=== PATIENT | male | born 1985 | race Caucasian/White ===

== ENCOUNTER 2020-08-09 13:29 | Observation (INO) | payer BC ==
[2020-08-09] MEDS ORDERED: Sodium Chloride 0.9% 10 ML Syringe FLUSH PRN (14:14)
--- NOTE | 2020-08-09 14:27 | EDM.PDOC ---
ED HPI GENERAL MEDICAL PROBLEM - General Chief Complaint: Skin Complaint Stated Complaint: INFECTION IN FEET Time Seen by Provider: 08/09/20 13:47 Source of Information: Reports: Patient, RN Notes Reviewed History Limitations: Reports: No Limitations - History of Present Illness INITIAL COMMENTS - FREE TEXT/NARRATIVE: Patient is a 34-year-old male who presents to the ED for evaluation of his bilateral feet infection. He notes that this has been present for about 1 week, he thought that he may have developed some athlete's foot, so he was using Lotrimin cream for this, along with some hydrocortisone cream, this seemed to help a little bit however he notes that the redness has continued to spread, and is now affecting both of his feet. He denies being a diabetic, or any other major past medical history. He was seen at the [facility] by Maryan Palafox yesterday and placed on doxycycline notes that he took his 2 doses of this. He has redness to his bilateral dorsal feet, along with some associated blisters between the great toes and second toes. Redness streaks all the way up to his mid robles level. He is not having too much pain with this, and is able to move his toes in all range of motion without difficulty. He did take some Jiuce aspirin this morning for pain management and this seemed to help a little bit. He is denying any fevers or chills, cough shortness of breath, nausea/vomiting/diarrhea. He states that his primary care provider would be Corin Son, he went to see Maryan Palafox yesterday as she was the only provider that could get him in her schedule. 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) Bilateral Feet Pain Score (Numeric/FACES): 6 - Related Data Allergies Allergy/AdvReac Type Severity Reaction Status Date / Time No Known Allergies Allergy Verified 08/09/20 13:54 Home Meds: Home Meds Doxycycline [Doxycycline Monohydrate] 100 mg PO DAILY 08/09/20 [History] Past Medical History - Past Surgical History HEENT Surgical History: Reports: Tonsillectomy Social & Family History - Tobacco Use Tobacco Use Status *Q: Current Every Day Tobacco User Years of Tobacco use: 5 Packs/Tins Daily: 0.7 - Caffeine Use Caffeine Use: Reports: Soda - Alcohol Use Days Per Week of Alcohol Use: 1 Number of Drinks Per Day: 3 Total Drinks Per Week: 3 - Recreational Drug Use Recreational Drug Use: No ED ROS GENERAL - Review of Systems Review Of Systems: Comprehensive ROS is negative, except as noted in HPI. ED EXAM, SKIN/RASH Exam: See Below Exam Limited By: No Limitations General Appearance: Alert, WD/WN, No Apparent Distress Respiratory/Chest: No Respiratory Distress, Lungs Clear, Normal Breath Sounds, No Accessory Muscle Use, Chest Non-Tender Cardiovascular: Normal Peripheral Pulses, Regular Rate, Rhythm, No Edema Peripheral Pulses: 2+: Dorsalis Pedis (L), Dorsalis Pedis (R) Extremities: Normal Range of Motion, Increased Warmth (to bilateral feet), Redness (to dorsum of bilateral feet, extending to mid robles on bilateral extremities), Other (brisk cap refill) Neurological: Alert, Oriented, Normal Cognition, No Motor/Sensory Deficits Psychiatric: Normal Affect, Normal Mood Skin: Warm, Dry, Intact, No Rash, Erythema (to dorsum of bilateral feet, extending to mid robles on bilateral extremities; areas of blistering noted to between R great toe and 2nd toe and on left foot-2nd toe), Increased Warmth Course - Vital Signs Last Recorded V/S: Last Vital Signs Temp 97.0 F 08/09/20 13:47 Pulse 105 H 08/09/20 13:47 Resp 16 08/09/20 13:47 BP 158/105 H 08/09/20 13:47 Pulse Ox 98 08/09/20 13:47 - Orders/Labs/Meds Orders: Active Orders 24 hr Category Date Time Status Admission Status [Patient Status] [ADT] Routine ADT 08/09/20 19:02 Active Height and Weight [RC] UPON Care 08/09/20 19:19 Active Intake and Output [RC] QSHIFT Care 08/09/20 19:19 Active Oxygen Therapy [RC] PRN Care 08/09/20 19:19 Active Peripheral IV Care [RC] . DIRECTED Care 08/09/20 14:14 Active RT Aerosol Therapy [RC] ASDIRECTED Care 08/09/20 19:21 Active Up With Assistance [RC] ASDIRECTED Care 08/09/20 19:19 Active Up ad Deanna [RC] ASDIRECTED Care 08/09/20 19:19 Active VTE/DVT Education [RC] PER UNIT ROUTINE Care 08/09/20 19:19 Active Vital Signs [RC] Q4H Care 08/09/20 19:19 Active Consult to Case Management/Police Investigator [CONS] Cons 08/09/20 19:19 Active Routine Consult to Sole Splitter [CONS] Routine Cons 08/09/20 19:19 Active OT Evaluation and Treatment [CONS] Routine Cons 08/09/20 19:19 Active PT Evaluation and Treatment [CONS] Routine Cons 08/09/20 19:19 Active Heart Healthy Diet [DIET] Diet 08/09/20 Dinner Active Venous Doppler Lwr Ext Bi [US] Stat Exams 08/09/20 16:08 Taken C-REACTIVE PROTEIN [CHEM] AM Lab 08/10/20 05:11 Ordered C-REACTIVE PROTEIN [CHEM] AM Lab 08/11/20 05:11 Ordered C-REACTIVE PROTEIN [CHEM] AM Lab 08/12/20 05:11 Ordered CBC WITH AUTO DIFF [HEME] AM Lab 08/10/20 05:11 Ordered CBC WITH AUTO DIFF [HEME] AM Lab 08/11/20 05:11 Ordered CBC WITH AUTO DIFF [HEME] AM Lab 08/12/20 05:11 Ordered CBC WITH AUTO DIFF [HEME] AM Lab 08/13/20 05:11 Ordered CBC WITH AUTO DIFF [HEME] AM Lab 08/14/20 05:11 Ordered COMPREHENSIVE METABOLIC PN,CMP [CHEM] AM Lab 08/10/20 05:11 Ordered COMPREHENSIVE METABOLIC PN,CMP [CHEM] AM Lab 08/11/20 05:11 Ordered COMPREHENSIVE METABOLIC PN,CMP [CHEM] AM Lab 08/12/20 05:11 Ordered COMPREHENSIVE METABOLIC PN,CMP [CHEM] AM Lab 08/13/20 05:11 Ordered COMPREHENSIVE METABOLIC PN,CMP [CHEM] AM Lab 08/14/20 05:11 Ordered MAGNESIUM [CHEM] AM Lab 08/10/20 05:11 Ordered MAGNESIUM [CHEM] AM Lab 08/11/20 05:11 Ordered MAGNESIUM [CHEM] AM Lab 08/12/20 05:11 Ordered MAGNESIUM [CHEM] AM Lab 08/13/20 05:11 Ordered MAGNESIUM [CHEM] AM Lab 08/14/20 05:11 Ordered Albuterol/Ipratropium [DuoNeb 3.0-0.5 MG/3 ML] Med 08/09/20 19:19 Active 3 ml NEB Q4H PRN Docusate Sodium [Colace] Med 08/09/20 19:19 Active 100 mg PO BID PRN Docusate Sodium/Sennosides [Senna Plus] Med 08/09/20 19:19 Active 1 tab PO BID PRN Enoxaparin [Lovenox] Med 08/10/20 09:00 Ordered 40 mg SUBCUT DAILY HYDROmorphone [Dilaudid] Med 08/09/20 19:19 Active 0.5 mg IVPUSH Q2H PRN Ibuprofen [Motrin] Med 08/09/20 19:19 Active 600 mg PO Q6H PRN Morphine Med 08/09/20 19:19 Active 1 mg IVPUSH Q2H PRN Ondansetron [Zofran] Med 08/09/20 19:19 Active 4 mg IV Q6H PRN Pharmacy to Dose - Vancomycin Med 08/09/20 19:23 Pending 1 dose .XX ONETIME ONE Promethazine [Phenergan] 12.5 mg Med 08/09/20 19:19 Active Sodium Chloride 0.9% [Normal Saline] 50 ml IV Q6H Sodium Chloride 0.9% [Saline Flush] Med 08/09/20 14:14 Active 10 ml FLUSH ASDIRECTED PRN Vancomycin 1 gm Med 08/09/20 19:30 Ordered Sodium Chloride 0.9% [Normal Saline] 250 ml IV Q12H Zolpidem [Ambien] Med 08/09/20 19:19 Active 5 mg PO BEDTIME PRN bisacodyL [Dulcolax] Med 08/09/20 19:19 Active 5 mg PO DAILY PRN oxyCODONE Med 08/09/20 19:19 Active 5 mg PO Q4H PRN Peripheral IV Insertion Adult [OM.PC] Routine Oth 08/09/20 14:14 Ordered Resuscitation Status Routine Resus Stat 08/09/20 19:19 Ordered Medication Orders Albuterol/Ipratropium (Duoneb 3.0-0.5 Mg/3 Ml) 3 ml NEB Q4H PRN PRN Reason: Shortness Of Breath/wheezing Bisacodyl (Dulcolax) 5 mg PO DAILY PRN PRN Reason: Constipation Docusate Sodium (Colace) 100 mg PO BID PRN PRN Reason: Constipation Enoxaparin Sodium (Lovenox) 40 mg SUBCUT DAILY KIRSTIE Hydromorphone HCl (Dilaudid) 0.5 mg IVPUSH Q2H PRN PRN Reason: Pain (severe 7-10) Promethazine HCl 12.5 mg/ (Sodium Chloride) 50.5 mls @ 100 mls/hr IV Q6H PRN PRN Reason: Nausea/Vomiting Vancomycin HCl 1 gm/ Sodium (Chloride) 250 mls @ 250 mls/hr IV Q12H KIRSTIE Ibuprofen (Motrin) 600 mg PO Q6H PRN PRN Reason: Pain (moderate 4-6) Morphine Sulfate (Morphine) 1 mg IVPUSH Q2H PRN PRN Reason: Pain (severe 7-10) Stop: 08/10/20 19:22 Ondansetron HCl (Zofran) 4 mg IV Q6H PRN PRN Reason: Nausea/Vomiting Oxycodone HCl (Oxycodone) 5 mg PO Q4H PRN PRN Reason: Pain (moderate 4-6) Senna/Docusate Sodium (Senna Plus) 1 tab PO BID PRN PRN Reason: Constipation Sodium Chloride (Saline Flush) 10 ml FLUSH ASDIRECTED PRN PRN Reason: Keep Vein Open Last Admin: 08/09/20 14:43 Dose: 10 ml Documented by: REEMA Vancomycin HCl (Pharmacy To Dose - Vancomycin) 1 dose .XX ONETIME ONE Stop: 08/09/20 19:24 Zolpidem Tartrate (Ambien) 5 mg PO BEDTIME PRN PRN Reason: Sleep Labs: Laboratory Tests 08/09/20 08/09/20 08/09/20 Range/Units 14:30 14:51 14:51 WBC 6.40 (4.23-9.07) K/mm3 RBC 5.14 (4.63-6.08) M/mm3 Hgb 15.0 (13.7-17.5) gm/dl Hct 44.8 (40.1-51.0) % MCV 87.2 (79.0-92.2) fl MCH 29.2 (25.7-32.2) pg MCHC 33.5 (32.2-35.5) g/dl RDW Std Deviation 38.8 (35.1-43.9) fL Plt Count 240 (163-337) K/mm3 MPV 9.2 L (9.4-12.3) fl Neutrophils % (Manual) 65 H (40-60) % Band Neutrophils % 0 (0-10) % Lymphocytes % (Manual) 27 (20-40) % Atypical Lymphs % 0 % Monocytes % (Manual) 5 (2-10) % Eosinophils % (Manual) 3 (0.8-7.0) % Basophils % (Manual) 0 L (0.2-1.2) Platelet Estimate Adequate RBC Morph Comment Normal Sodium 142 (136-145) mEq/L Potassium 3.8 (3.5-5.1) mEq/L Chloride 104 (98-107) mEq/L Carbon Dioxide 28 (21-32) mEq/L Anion Gap 13.8 (5-15) BUN 12 (7-18) mg/dL Creatinine 1.1 (0.7-1.3) mg/dL Est Cr Clr Drug Dosing 99.55 mL/min Estimated GFR (MDRD) > 60 (>60) mL/min BUN/Creatinine Ratio 10.9 L (14-18) Glucose 91 (74-106) mg/dL Hemoglobin A1c ( - 5.6) % Calcium 8.9 (8.5-10.1) mg/dL Total Bilirubin 0.7 (0.2-1.0) mg/dL AST 40 H (15-37) U/L ALT 80 H (16-63) U/L Alkaline Phosphatase 100 (46-116) U/L C-Reactive Protein 1.8 H* (<1.0) mg/dL Total Protein 7.9 (6.4-8.2) g/dl Albumin 4.0 (3.4-5.0) g/dl Globulin 3.9 gm/dL Albumin/Globulin Ratio 1.0 (1-2) Influenza Type A RNA Negative (NEGATIVE) Influenza Type B RNA Negative (NEGATIVE) SARS-CoV-2 RNA (JONATHAN) Negative (NEGATIVE) 08/09/20 Range/Units 14:51 WBC (4.23-9.07) K/mm3 RBC (4.63-6.08) M/mm3 Hgb (13.7-17.5) gm/dl Hct (40.1-51.0) % MCV (79.0-92.2) fl MCH (25.7-32.2) pg MCHC (32.2-35.5) g/dl RDW Std Deviation (35.1-43.9) fL Plt Count (163-337) K/mm3 MPV (9.4-12.3) fl Neutrophils % (Manual) (40-60) % Band Neutrophils % (0-10) % Lymphocytes % (Manual) (20-40) % Atypical Lymphs % % Monocytes % (Manual) (2-10) % Eosinophils % (Manual) (0.8-7.0) % Basophils % (Manual) (0.2-1.2) Platelet Estimate RBC Morph Comment Sodium (136-145) mEq/L Potassium (3.5-5.1) mEq/L Chloride (98-107) mEq/L Carbon Dioxide (21-32) mEq/L Anion Gap (5-15) BUN (7-18) mg/dL Creatinine (0.7-1.3) mg/dL Est Cr Clr Drug Dosing mL/min Estimated GFR (MDRD) (>60) mL/min BUN/Creatinine Ratio (14-18) Glucose (74-106) mg/dL Hemoglobin A1c 5.3 ( - 5.6) % Calcium (8.5-10.1) mg/dL Total Bilirubin (0.2-1.0) mg/dL AST (15-37) U/L ALT (16-63) U/L Alkaline Phosphatase (46-116) U/L C-Reactive Protein (<1.0) mg/dL Total Protein (6.4-8.2) g/dl Albumin (3.4-5.0) g/dl Globulin gm/dL Albumin/Globulin Ratio (1-2) Influenza Type A RNA (NEGATIVE) Influenza Type B RNA (NEGATIVE) SARS-CoV-2 RNA (JONATHAN) (NEGATIVE) Meds: Medications Generic Name Dose Route Start Last Admin Trade Name Freq PRN Reason Stop Dose Admin Albuterol/Ipratropium 3 ml 08/09/20 19:19 Duoneb 3.0-0.5 Mg/3 Ml NEB Q4H PRN Shortness Of Breath/wheezing Bisacodyl 5 mg 08/09/20 19:19 Dulcolax PO DAILY PRN Constipation Docusate Sodium 100 mg 08/09/20 19:19 Colace PO BID PRN Constipation Enoxaparin Sodium 40 mg 08/10/20 09:00 Lovenox SUBCUT DAILY KIRSTIE Hydromorphone HCl 0.5 mg 08/09/20 19:19 Dilaudid IVPUSH Q2H PRN Pain (severe 7-10) Promethazine HCl 12.5 mg/ 50.5 mls @ 100 mls/hr 08/09/20 19:19 Sodium Chloride IV Q6H PRN Nausea/Vomiting Vancomycin HCl 1 gm/ Sodium 250 mls @ 250 mls/hr 08/09/20 19:30 Chloride IV Q12H KIRSTIE Ibuprofen 600 mg 08/09/20 19:19 Motrin PO Q6H PRN Pain (moderate 4-6) Morphine Sulfate 1 mg 08/09/20 19:19 Morphine IVPUSH 08/10/20 19:22 Q2H PRN Pain (severe 7-10) Ondansetron HCl 4 mg 08/09/20 19:19 Zofran IV Q6H PRN Nausea/Vomiting Oxycodone HCl 5 mg 08/09/20 19:19 Oxycodone PO Q4H PRN Pain (moderate 4-6) Senna/Docusate Sodium 1 tab 08/09/20 19:19 Senna Plus PO BID PRN Constipation Sodium Chloride 10 ml 08/09/20 14:14 08/09/20 14:43 Saline Flush FLUSH 10 ml ASDIRECTED PRN Administration Keep Vein Open Vancomycin HCl 1 dose 08/09/20 19:23 Pharmacy To Dose - Vancomycin .XX 08/09/20 19:24 ONETIME ONE Zolpidem Tartrate 5 mg 08/09/20 19:19 Ambien PO BEDTIME PRN Sleep Discontinued Medications Generic Name Dose Route Start Last Admin Trade Name Freq PRN Reason Stop Dose Admin Ceftriaxone Sodium 2 gm/ 100 mls @ 200 mls/hr 08/09/20 16:10 08/09/20 16:28 Sodium Chloride IV 08/09/20 16:39 200 mls/hr ONETIME ONE Administration - Re-Assessments/Exams Free Text/Narrative Re-Assessment/Exam: 08/09/20 14:27 Patient presents to the ED for his bilateral foot infection. We will go ahead get x-rays to evaluate for possible osteomyelitis. We will get an IV placed along with some baseline labs. Highly suspect the patient will need hospitalization for his infections, a COVID-19 swab has been ordered as well. 08/09/20 16:03 The patient's laboratory evaluation has come back, CBC is essentially unremarkable, CMP is also unremarkable, CRP is mildly elevated at 1.8, the COVID-19/flu screen was both negative at today's visit. I will try to contact our hospitalist on-call, Dr. Ham for possible hospital admission. 08/09/20 16:06 Dr. Ham does graciously accept the patient for admission at this time. He does request performing bilateral leg ultrasounds to evaluate for blood clot/phlebitis in nature. Order has been placed, I have also ordered 2 g Rocephin IV for initial management. 08/09/20 16:15 After updating the patient on his status in the ER, he does inform me that his family does have a pretty significant history of diabetes. I have ordered a glycosylated hemoglobin for further evaluation to be done on blood that had already been collected. 08/09/20 16:36 X-ray reports of the feet demonstrate soft tissue swelling with no acute osseous abnormality appreciated. Departure - Departure Time of Disposition: 16:07 Disposition: Refer to Observation Condition: Good Clinical Impression: Bilateral lower leg cellulitis - Discharge Information Referrals: Corin Son NP [Primary Care Provider] - Forms: ED Department Discharge Sepsis Event Note (ED) - Evaluation Sepsis Screening Result: No Definite Risk - Focused Exam Vital Signs: Vital Signs Temp Pulse Resp BP Pulse Ox 08/09/20 13:47 97.0 F 105 H 16 158/105 H 98 - My Orders Last 24 Hours: My Active Orders 08/09/20 14:14 Peripheral IV Care [RC] . DIRECTED Sodium Chloride 0.9% [Saline Flush] 10 ml FLUSH ASDIRECTED PRN Peripheral IV Insertion Adult [OM.PC] Routine 08/09/20 16:08 Venous Doppler Lwr Ext Bi [US] Stat 08/09/20 19:02 Admission Status [Patient Status] [ADT] Routine - Assessment/Plan Last 24 Hours: My Active Orders 08/09/20 14:14 Peripheral IV Care [RC] . DIRECTED Sodium Chloride 0.9% [Saline Flush] 10 ml FLUSH ASDIRECTED PRN Peripheral IV Insertion Adult [OM.PC] Routine 08/09/20 16:08 Venous Doppler Lwr Ext Bi [US] Stat 08/09/20 19:02 Admission Status [Patient Status] [ADT] Routine
[2020-08-09 15:14] LABS: CORONAVIRUS COVID-19 NAA NEGATIVE (NEGATIVE)
[2020-08-09] MEDS ORDERED: cefTRIAXone 2 GM in Sodium Chloride 0.9% 100 ML IV ONE (16:10)
--- NOTE | 2020-08-09 16:33 | CR ---
Right foot: 4 views of the right foot were obtained. Comparison: No prior right foot exam is available. Soft tissue swelling appears to be present. Joint spaces are preserved. No bony erosions are seen. No acute fracture, dislocation or other bony abnormality is seen. Impression: 1. Soft tissue swelling. 2. No acute osseous abnormality is appreciated. Diagnostic code #2
--- NOTE | 2020-08-09 16:33 | CR ---
Left foot: 4 views of the left foot were obtained. Comparison: No prior foot study is available. Joint spaces are preserved. Slight soft tissue swelling is noted. No focal erosions are seen. No acute fracture or other abnormality is seen. Impression: 1. Mild soft tissue swelling. 2. No acute osseous finding is seen. Diagnostic code #2
[2020-08-09 16:40] LABS: HEMOGLOBIN A1C 5.3 %
--- NOTE | 2020-08-09 18:09 | PCM.HP.2 ---
H&P History of Present Illness - General Date of Service: 08/09/20 Admit Problem/Dx: B/L LE Cellulitis Source of Information: Patient, Family, Provider, RN Notes Reviewed - History of Present Illness Initial Comments - Free Text/Narative: This is 34 yo white male with past medical hx of Obesity who comes to us for worsening bilateral lower extremity cellulitis. He states he had the infection for about a week and thought it might have been due to athlete's foot. 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 He has been using hydrocortisone and lotrimin cream but w/o any improvement of his skin infection. He was seen in [facility] yesterday and was put on Doxycycline for antibiotic treatment. Unfortunately, he states both feet were no better. He denies being diabetic. No fever or chills. He endorses redness all the way to his shins. No active pain but tenderness on palpation. He has some blisters and some scabs noted on examination. No GI or complaints. No possible exposure to covid-19 infection. His initial work up shows an unremarkable CBC. His chemistry is significant for AST of 40, ALT of 80 and CRP of 1.8. His Influenza and Covid-19 tests were both negative. His bilateral foot x-ray report read as mild soft tissue swelling and no acute osseous findings seen. Patient received 2 grams of IV Rocephin in ED prior to coming in to the floor for further treatment of bilateral lower extremity cellulitis. Bilateral Feet Pain Score (Numeric/FACES): 6 - Related Data Allergies/Adverse Reactions: Allergies Allergy/AdvReac Type Severity Reaction Status Date / Time No Known Allergies Allergy Verified 08/09/20 13:54 Home Medications: Home Meds Doxycycline [Doxycycline Monohydrate] 100 mg PO DAILY 08/09/20 [History] Past Medical History - Past Surgical History HEENT Surgical History: Reports: Tonsillectomy Social & Family History - Tobacco Use Tobacco Use Status *Q: Current Every Day Tobacco User Years of Tobacco use: 5 Packs/Tins Daily: 0.7 - Caffeine Use Caffeine Use: Reports: Soda - Alcohol Use Days Per Week of Alcohol Use: 1 Number of Drinks Per Day: 3 Total Drinks Per Week: 3 - Recreational Drug Use Recreational Drug Use: No H&P Review of Systems - Review of Systems: Review Of Systems: See Below General: Denies: Fever, Chills, Malaise, Weakness, Fatigue, Decreased Appetite HEENT: Denies: Dysphasia Pulmonary: Reports: No Symptoms Cardiovascular: Denies: Chest Pain Gastrointestinal: Denies: Abdominal Pain, Nausea, Vomiting Genitourinary: Denies: Frequency Musculoskeletal: Reports: Foot Pain Skin: Reports: Rash, Erythema, Other (edema with blisters) Psychiatric: Denies: Anxiety Neurological: Denies: Confusion, Difficulty Walking, Weakness, Gait Disturbance Hematologic/Lymphatic: Reports: No Symptoms Immunologic: Reports: No Symptoms Exam - Exam Exam: See Below - Vital Signs Vital Signs: Last Vital Signs Temp 36.1 C 08/09/20 13:47 Pulse 105 H 08/09/20 13:47 Resp 16 08/09/20 13:47 BP 158/105 H 08/09/20 13:47 Pulse Ox 98 08/09/20 13:47 Weight: 110.932 kg - Exam General: Alert, Oriented, Cooperative, Mild Distress, Other (Obese) HEENT: Conjunctiva Clear, EACs Clear, EOMI, Hearing Intact, Mucosa Moist & [place], Nares Patent, Normal Nasal Septum, Posterior Pharynx Clear, Pupils Equal, Pupils Reactive Neck: Supple, Trachea Midline Lungs: Clear to Auscultation, Normal Respiratory Effort Cardiovascular: Regular Rate, Regular Rhythm GI/Abdominal Exam: Normal Bowel Sounds, Soft, Non-Tender, No Organomegaly, No Distention, No Abnormal Bruit, Other (Obese) (Male) Exam: Deferred Rectal (Males) Exam: Deferred Back Exam: Normal Inspection, Decreased Range of Motion Extremities: Normal Range of Motion, Non-Tender, Pedal Edema, Leg Pain, Increased Warmth, Redness. No: Normal Inspection Peripheral Pulses: 1+: Dorsalis Pedis (L), Dorsalis Pedis (R) Skin Alteration Location (Drawings Not To Scale): 1 - red, tender to palpation with edema. scattered blisters some with scabs Neuro Extensive - Mental Status: Oriented x3, Normal Cognition, Memory Intact Neuro Extensive - Motor, Sensory, Reflexes: CN II-XII Intact, Normal Gait Psychiatric: Alert, Normal Affect, Normal Mood - Patient Data Lab Results Last 24 hrs: Laboratory Results - last 24 hr 08/09/20 08/09/20 08/09/20 Range/Units 14:30 14:51 14:51 WBC 6.40 (4.23-9.07) K/mm3 RBC 5.14 (4.63-6.08) M/mm3 Hgb 15.0 (13.7-17.5) gm/dl Hct 44.8 (40.1-51.0) % MCV 87.2 (79.0-92.2) fl MCH 29.2 (25.7-32.2) pg MCHC 33.5 (32.2-35.5) g/dl RDW Std Deviation 38.8 (35.1-43.9) fL Plt Count 240 (163-337) K/mm3 MPV 9.2 L (9.4-12.3) fl Neutrophils % (Manual) 65 H (40-60) % Band Neutrophils % 0 (0-10) % Lymphocytes % (Manual) 27 (20-40) % Atypical Lymphs % 0 % Monocytes % (Manual) 5 (2-10) % Eosinophils % (Manual) 3 (0.8-7.0) % Basophils % (Manual) 0 L (0.2-1.2) Platelet Estimate Adequate RBC Morph Comment Normal Sodium 142 (136-145) mEq/L Potassium 3.8 (3.5-5.1) mEq/L Chloride 104 (98-107) mEq/L Carbon Dioxide 28 (21-32) mEq/L Anion Gap 13.8 (5-15) BUN 12 (7-18) mg/dL Creatinine 1.1 (0.7-1.3) mg/dL Est Cr Clr Drug Dosing 99.55 mL/min Estimated GFR (MDRD) > 60 (>60) mL/min BUN/Creatinine Ratio 10.9 L (14-18) Glucose 91 (74-106) mg/dL Hemoglobin A1c ( - 5.6) % Calcium 8.9 (8.5-10.1) mg/dL Total Bilirubin 0.7 (0.2-1.0) mg/dL AST 40 H (15-37) U/L ALT 80 H (16-63) U/L Alkaline Phosphatase 100 (46-116) U/L C-Reactive Protein 1.8 H* (<1.0) mg/dL Total Protein 7.9 (6.4-8.2) g/dl Albumin 4.0 (3.4-5.0) g/dl Globulin 3.9 gm/dL Albumin/Globulin Ratio 1.0 (1-2) Influenza Type A RNA Negative (NEGATIVE) Influenza Type B RNA Negative (NEGATIVE) SARS-CoV-2 RNA (JONATHAN) Negative (NEGATIVE) 08/09/20 Range/Units 14:51 WBC (4.23-9.07) K/mm3 RBC (4.63-6.08) M/mm3 Hgb (13.7-17.5) gm/dl Hct (40.1-51.0) % MCV (79.0-92.2) fl MCH (25.7-32.2) pg MCHC (32.2-35.5) g/dl RDW Std Deviation (35.1-43.9) fL Plt Count (163-337) K/mm3 MPV (9.4-12.3) fl Neutrophils % (Manual) (40-60) % Band Neutrophils % (0-10) % Lymphocytes % (Manual) (20-40) % Atypical Lymphs % % Monocytes % (Manual) (2-10) % Eosinophils % (Manual) (0.8-7.0) % Basophils % (Manual) (0.2-1.2) Platelet Estimate RBC Morph Comment Sodium (136-145) mEq/L Potassium (3.5-5.1) mEq/L Chloride (98-107) mEq/L Carbon Dioxide (21-32) mEq/L Anion Gap (5-15) BUN (7-18) mg/dL Creatinine (0.7-1.3) mg/dL Est Cr Clr Drug Dosing mL/min Estimated GFR (MDRD) (>60) mL/min BUN/Creatinine Ratio (14-18) Glucose (74-106) mg/dL Hemoglobin A1c 5.3 ( - 5.6) % Calcium (8.5-10.1) mg/dL Total Bilirubin (0.2-1.0) mg/dL AST (15-37) U/L ALT (16-63) U/L Alkaline Phosphatase (46-116) U/L C-Reactive Protein (<1.0) mg/dL Total Protein (6.4-8.2) g/dl Albumin (3.4-5.0) g/dl Globulin gm/dL Albumin/Globulin Ratio (1-2) Influenza Type A RNA (NEGATIVE) Influenza Type B RNA (NEGATIVE) SARS-CoV-2 RNA (JONATHAN) (NEGATIVE) Result Diagrams: 08/10/20 05:12 08/10/20 05:12 Sepsis Event Note - Evaluation Sepsis Screening Result: No Definite Risk - Focused Exam Vital Signs: Vital Signs Temp Pulse Resp BP Pulse Ox 08/09/20 13:47 36.1 C 105 H 16 158/105 H 98 Problem List Initiated/Reviewed/Updated: Yes Orders Last 24hrs: Active Orders 24 hr Category Date Time Status Peripheral IV Care [RC] . DIRECTED Care 08/09/20 14:14 Active Venous Doppler Lwr Ext Bi [US] Stat Exams 08/09/20 16:08 Ordered Sodium Chloride 0.9% [Saline Flush] Med 08/09/20 14:14 Active 10 ml FLUSH ASDIRECTED PRN Peripheral IV Insertion Adult [OM.PC] Routine Oth 08/09/20 14:14 Ordered Medication Orders Sodium Chloride (Saline Flush) 10 ml FLUSH ASDIRECTED PRN PRN Reason: Keep Vein Open Last Admin: 08/09/20 14:43 Dose: 10 ml Documented by: REEMA Assessment/Plan Comment:: This is 34 yo white male with past medical hx of Obesity who comes to us for worsening bilateral lower extremity cellulitis. Assessment: Acute: Bilateral Lower Extremity Cellulitis/SSTI DDx: Staph Aureus Infection/Staph Skin Scalded Syndrome Bilateral Inguinal Lymphadenopathy w/o complaints, likely from underlying SSTI Elevated Liver Enzymes Elevated CRP of 1.8 Class II Obese Chronic: Obesity Plan: Admit to [facility]. IV Vancomycin 1 gram BID for pharmacy to dose. Regular diet. Monitor inflammatory markers. Routine AM Labs. Duplex U/S to r/o blood clot or thrombophlebitis. DVT/GI Prophylaxis. Dietary consult for weight management. - Mortality Measure Prognosis:: Good
[2020-08-09] MEDS ORDERED: Bisacodyl 5 MG Tab PO PRN (19:19)
[2020-08-09] MEDS ORDERED: HYDROmorphone 0.5 MG/0.5 ML Syringe IVPUSH PRN (19:19)
[2020-08-09] MEDS ORDERED: Morphine 2 MG/ML SYRINGE IVPUSH PRN (19:19)
[2020-08-09] MEDS ORDERED: Ibuprofen 600 MG Tab PO PRN (19:19)
[2020-08-09] MEDS ORDERED: Docusate Sodium 100 MG Cap PO PRN (19:19)
[2020-08-09] MEDS ORDERED: Zolpidem 5 MG Tab PO PRN (19:19)
[2020-08-09] MEDS ORDERED: Ondansetron 4 MG/2 ML SDV IV PRN (19:19)
[2020-08-09] MEDS ORDERED: Promethazine 12.5 MG in Sodium Chloride 0.9% 50 ML IV PRN (19:19)
[2020-08-09] MEDS ORDERED: oxyCODONE 5 MG Tab PO PRN (19:19)
[2020-08-09] MEDS ORDERED: Albuterol/Ipratropium 3.0-0.5 MG/3 ML Neb Soln NEB PRN (19:19)
--- NOTE | 2020-08-10 07:52 | PCM.PN ---
- General Info Date of Service: 08/10/20 Admission Dx/Problem (Free Text): B/L LE Cellulitis Subjective Update: In to see Marcus. He is laying in bed. His feet remain quite red and multiple blisters are noted. There is some serosanguineous drainage from one of the blisters. Patient denies any recent heat or cold trauma. Denies any other symptoms. White count remains normal. CRP remains 1.8. We will continue Vancomycin. PT wound care in to see the patient denies need for any acute debridement. Patient will remain in observation status. Will address status pending how patient does clinically. Functional Status: Reports: Pain Controlled, Tolerating Diet, Ambulating, Urinating. Denies: New Symptoms - Review of Systems General: Reports: No Symptoms. Denies: Fever, Weakness, Fatigue, Malaise, Chills HEENT: Reports: No Symptoms. Denies: Headaches, Sore Throat Pulmonary: Reports: No Symptoms. Denies: Shortness of Breath, Cough, Sputum, Wheezing Cardiovascular: Reports: No Symptoms. Denies: Chest Pain, Palpitations, Dyspnea on Exertion, Edema Gastrointestinal: Reports: No Symptoms. Denies: Abdominal Pain, Constipation, Diarrhea, Nausea, Vomiting Genitourinary: Reports: No Symptoms. Denies: Pain Musculoskeletal: Reports: Foot Pain (bilateral ) Skin: Reports: No Symptoms. Denies: Cyanosis Neurological: Reports: No Symptoms. Denies: Confusion Psychiatric: Reports: No Symptoms - Patient Data Vitals - Most Recent: Last Vital Signs Temp 98.1 F 08/10/20 04:51 Pulse 86 08/10/20 04:51 Resp 18 08/10/20 04:51 BP 126/64 08/10/20 04:51 Pulse Ox 97 08/10/20 04:51 Weight - Most Recent: 242 lb 12.8 oz I&O - Last 24 Hours: Intake & Output 08/09/20 08/10/20 08/10/20 22:59 06:59 14:59 Intake Total 1000 Output Total 1000 Balance 0 Lab Results Last 24 Hours: Laboratory Results - last 24 hr 08/09/20 08/09/20 08/09/20 Range/Units 14:30 14:51 14:51 WBC 6.40 (4.23-9.07) K/mm3 RBC 5.14 (4.63-6.08) M/mm3 Hgb 15.0 (13.7-17.5) gm/dl Hct 44.8 (40.1-51.0) % MCV 87.2 (79.0-92.2) fl MCH 29.2 (25.7-32.2) pg MCHC 33.5 (32.2-35.5) g/dl RDW Std Deviation 38.8 (35.1-43.9) fL Plt Count 240 (163-337) K/mm3 MPV 9.2 L (9.4-12.3) fl Neut % (Auto) (34.0-67.9) % Lymph % (Auto) (21.8-53.1) % Barry % (Auto) (5.3-12.2) % Eos % (Auto) (0.8-7.0) Baso % (Auto) (0.1-1.2) % Neut # (Auto) (1.78-5.38) K/mm3 Lymph # (Auto) (1.32-3.57) K/mm3 Barry # (Auto) (0.30-0.82) K/mm3 Eos # (Auto) (0.04-0.54) K/mm3 Baso # (Auto) (0.01-0.08) K/mm3 Neutrophils % (Manual) 65 H (40-60) % Band Neutrophils % 0 (0-10) % Lymphocytes % (Manual) 27 (20-40) % Atypical Lymphs % 0 % Monocytes % (Manual) 5 (2-10) % Eosinophils % (Manual) 3 (0.8-7.0) % Basophils % (Manual) 0 L (0.2-1.2) Platelet Estimate Adequate RBC Morph Comment Normal Sodium 142 (136-145) mEq/L Potassium 3.8 (3.5-5.1) mEq/L Chloride 104 (98-107) mEq/L Carbon Dioxide 28 (21-32) mEq/L Anion Gap 13.8 (5-15) BUN 12 (7-18) mg/dL Creatinine 1.1 (0.7-1.3) mg/dL Est Cr Clr Drug Dosing 99.55 mL/min Estimated GFR (MDRD) > 60 (>60) mL/min BUN/Creatinine Ratio 10.9 L (14-18) Glucose 91 (74-106) mg/dL Hemoglobin A1c ( - 5.6) % Calcium 8.9 (8.5-10.1) mg/dL Magnesium (1.8-2.4) mg/dl Total Bilirubin 0.7 (0.2-1.0) mg/dL AST 40 H (15-37) U/L ALT 80 H (16-63) U/L Alkaline Phosphatase 100 (46-116) U/L C-Reactive Protein 1.8 H* (<1.0) mg/dL Total Protein 7.9 (6.4-8.2) g/dl Albumin 4.0 (3.4-5.0) g/dl Globulin 3.9 gm/dL Albumin/Globulin Ratio 1.0 (1-2) Influenza Type A RNA Negative (NEGATIVE) Influenza Type B RNA Negative (NEGATIVE) SARS-CoV-2 RNA (JONATHAN) Negative (NEGATIVE) 08/09/20 08/10/20 08/10/20 Range/Units 14:51 05:12 05:12 WBC 5.43 (4.23-9.07) K/mm3 RBC 4.74 (4.63-6.08) M/mm3 Hgb 14.0 (13.7-17.5) gm/dl Hct 42.0 (40.1-51.0) % MCV 88.6 (79.0-92.2) fl MCH 29.5 (25.7-32.2) pg MCHC 33.3 (32.2-35.5) g/dl RDW Std Deviation 39.4 (35.1-43.9) fL Plt Count 205 (163-337) K/mm3 MPV 9.4 (9.4-12.3) fl Neut % (Auto) 51.9 (34.0-67.9) % Lymph % (Auto) 33.3 (21.8-53.1) % Barry % (Auto) 8.8 (5.3-12.2) % Eos % (Auto) 5.2 (0.8-7.0) Baso % (Auto) 0.6 (0.1-1.2) % Neut # (Auto) 2.82 (1.78-5.38) K/mm3 Lymph # (Auto) 1.81 (1.32-3.57) K/mm3 Barry # (Auto) 0.48 (0.30-0.82) K/mm3 Eos # (Auto) 0.28 (0.04-0.54) K/mm3 Baso # (Auto) 0.03 (0.01-0.08) K/mm3 Neutrophils % (Manual) (40-60) % Band Neutrophils % (0-10) % Lymphocytes % (Manual) (20-40) % Atypical Lymphs % % Monocytes % (Manual) (2-10) % Eosinophils % (Manual) (0.8-7.0) % Basophils % (Manual) (0.2-1.2) Platelet Estimate RBC Morph Comment Sodium 139 (136-145) mEq/L Potassium 3.9 (3.5-5.1) mEq/L Chloride 105 (98-107) mEq/L Carbon Dioxide 25 (21-32) mEq/L Anion Gap 12.9 (5-15) BUN 13 (7-18) mg/dL Creatinine 0.9 (0.7-1.3) mg/dL Est Cr Clr Drug Dosing 121.67 mL/min Estimated GFR (MDRD) > 60 (>60) mL/min BUN/Creatinine Ratio 14.4 (14-18) Glucose 93 (74-106) mg/dL Hemoglobin A1c 5.3 ( - 5.6) % Calcium 8.3 L (8.5-10.1) mg/dL Magnesium 2.2 (1.8-2.4) mg/dl Total Bilirubin 0.4 (0.2-1.0) mg/dL AST 28 (15-37) U/L ALT 65 H (16-63) U/L Alkaline Phosphatase 95 (46-116) U/L C-Reactive Protein 1.8 H* (<1.0) mg/dL Total Protein 7.1 (6.4-8.2) g/dl Albumin 3.5 (3.4-5.0) g/dl Globulin 3.6 gm/dL Albumin/Globulin Ratio 1.0 (1-2) Influenza Type A RNA (NEGATIVE) Influenza Type B RNA (NEGATIVE) SARS-CoV-2 RNA (JONATHAN) (NEGATIVE) Med Orders - Current: Current Medications Albuterol/Ipratropium (Duoneb 3.0-0.5 Mg/3 Ml) 3 ml NEB Q4H PRN PRN Reason: Shortness Of Breath/wheezing Bisacodyl (Dulcolax) 5 mg PO DAILY PRN PRN Reason: Constipation Docusate Sodium (Colace) 100 mg PO BID PRN PRN Reason: Constipation Enoxaparin Sodium (Lovenox) 40 mg SUBCUT DAILY [facility] Hydromorphone HCl (Dilaudid) 0.5 mg IVPUSH Q2H PRN PRN Reason: Pain (severe 7-10) Promethazine HCl 12.5 mg/ (Sodium Chloride) 50.5 mls @ 100 mls/hr IV Q6H PRN PRN Reason: Nausea/Vomiting Vancomycin HCl 1 gm/Vancomycin HCl 500 mg/ Sodium Chloride 500 mls @ 333.333 mls/hr IV Q8H [facility] Last Admin: 08/10/20 04:47 Dose: 333.333 mls/hr Documented by: Ibuprofen (Motrin) 600 mg PO Q6H PRN PRN Reason: Pain (moderate 4-6) Morphine Sulfate (Morphine) 1 mg IVPUSH Q2H PRN PRN Reason: Pain (severe 7-10) Stop: 08/10/20 19:22 Ondansetron HCl (Zofran) 4 mg IV Q6H PRN PRN Reason: Nausea/Vomiting Oxycodone HCl (Oxycodone) 5 mg PO Q4H PRN PRN Reason: Pain (moderate 4-6) Senna/Docusate Sodium (Senna Plus) 1 tab PO BID PRN PRN Reason: Constipation Sodium Chloride (Saline Flush) 10 ml FLUSH ASDIRECTED PRN PRN Reason: Keep Vein Open Last Admin: 08/09/20 14:43 Dose: 10 ml Documented by: Vancomycin HCl (Pharmacy To Dose - Vancomycin) 1 dose .XX ASDIRECTED [facility] Zolpidem Tartrate (Ambien) 5 mg PO BEDTIME PRN PRN Reason: Sleep Discontinued Medications Ceftriaxone Sodium 2 gm/ (Sodium Chloride) 100 mls @ 200 mls/hr IV ONETIME ONE Stop: 08/09/20 16:39 Last Admin: 08/09/20 16:28 Dose: 200 mls/hr Documented by: Vancomycin HCl 1 gm/ Sodium (Chloride) 250 mls @ 250 mls/hr IV Q12H [facility] Last Admin: 08/09/20 22:31 Dose: Not Given Documented by: - Exam Quality Assessment: DVT Prophylaxis. No: Supplemental Oxygen General: Alert, Oriented, Cooperative, No Acute Distress HEENT: Pupils Equal, Pupils Reactive, Mucous Membr. Moist/Pala Neck: Supple, Trachea Midline Lungs: Clear to Auscultation, Normal Respiratory Effort Cardiovascular: Regular Rate, Regular Rhythm GI/Abdominal Exam: Normal Bowel Sounds, Soft, Non-Tender, No Distention (Male) Exam: Deferred Extremities: Normal Range of Motion, No Pedal Edema, Normal Capillary Refill, Other (Bilateral erythema and multiple blisters noted. There is some ser osanguineous drainage.) Peripheral Pulses: 2+: Radial (L), Radial (R), Dorsalis Pedis (L), Dorsalis Pedis (R) Skin: Warm, Dry, Intact Wound/Incisions: Drainage, Erythema Neurological: No New Focal Deficit Psy/Mental Status: Alert, Normal Affect, Normal Mood - Patient Data Lab Results Last 24 hrs: Laboratory Results - last 24 hr 08/09/20 08/09/20 08/09/20 Range/Units 14:30 14:51 14:51 WBC 6.40 (4.23-9.07) K/mm3 RBC 5.14 (4.63-6.08) M/mm3 Hgb 15.0 (13.7-17.5) gm/dl Hct 44.8 (40.1-51.0) % MCV 87.2 (79.0-92.2) fl MCH 29.2 (25.7-32.2) pg MCHC 33.5 (32.2-35.5) g/dl RDW Std Deviation 38.8 (35.1-43.9) fL Plt Count 240 (163-337) K/mm3 MPV 9.2 L (9.4-12.3) fl Neut % (Auto) (34.0-67.9) % Lymph % (Auto) (21.8-53.1) % Barry % (Auto) (5.3-12.2) % Eos % (Auto) (0.8-7.0) Baso % (Auto) (0.1-1.2) % Neut # (Auto) (1.78-5.38) K/mm3 Lymph # (Auto) (1.32-3.57) K/mm3 Barry # (Auto) (0.30-0.82) K/mm3 Eos # (Auto) (0.04-0.54) K/mm3 Baso # (Auto) (0.01-0.08) K/mm3 Neutrophils % (Manual) 65 H (40-60) % Band Neutrophils % 0 (0-10) % Lymphocytes % (Manual) 27 (20-40) % Atypical Lymphs % 0 % Monocytes % (Manual) 5 (2-10) % Eosinophils % (Manual) 3 (0.8-7.0) % Basophils % (Manual) 0 L (0.2-1.2) Platelet Estimate Adequate RBC Morph Comment Normal Sodium 142 (136-145) mEq/L Potassium 3.8 (3.5-5.1) mEq/L Chloride 104 (98-107) mEq/L Carbon Dioxide 28 (21-32) mEq/L Anion Gap 13.8 (5-15) BUN 12 (7-18) mg/dL Creatinine 1.1 (0.7-1.3) mg/dL Est Cr Clr Drug Dosing 99.55 mL/min Estimated GFR (MDRD) > 60 (>60) mL/min BUN/Creatinine Ratio 10.9 L (14-18) Glucose 91 (74-106) mg/dL Hemoglobin A1c ( - 5.6) % Calcium 8.9 (8.5-10.1) mg/dL Magnesium (1.8-2.4) mg/dl Total Bilirubin 0.7 (0.2-1.0) mg/dL AST 40 H (15-37) U/L ALT 80 H (16-63) U/L Alkaline Phosphatase 100 (46-116) U/L C-Reactive Protein 1.8 H* (<1.0) mg/dL Total Protein 7.9 (6.4-8.2) g/dl Albumin 4.0 (3.4-5.0) g/dl Globulin 3.9 gm/dL Albumin/Globulin Ratio 1.0 (1-2) Influenza Type A RNA Negative (NEGATIVE) Influenza Type B RNA Negative (NEGATIVE) SARS-CoV-2 RNA (JONATHAN) Negative (NEGATIVE) 08/09/20 08/10/20 08/10/20 Range/Units 14:51 05:12 05:12 WBC 5.43 (4.23-9.07) K/mm3 RBC 4.74 (4.63-6.08) M/mm3 Hgb 14.0 (13.7-17.5) gm/dl Hct 42.0 (40.1-51.0) % MCV 88.6 (79.0-92.2) fl MCH 29.5 (25.7-32.2) pg MCHC 33.3 (32.2-35.5) g/dl RDW Std Deviation 39.4 (35.1-43.9) fL Plt Count 205 (163-337) K/mm3 MPV 9.4 (9.4-12.3) fl Neut % (Auto) 51.9 (34.0-67.9) % Lymph % (Auto) 33.3 (21.8-53.1) % Barry % (Auto) 8.8 (5.3-12.2) % Eos % (Auto) 5.2 (0.8-7.0) Baso % (Auto) 0.6 (0.1-1.2) % Neut # (Auto) 2.82 (1.78-5.38) K/mm3 Lymph # (Auto) 1.81 (1.32-3.57) K/mm3 Barry # (Auto) 0.48 (0.30-0.82) K/mm3 Eos # (Auto) 0.28 (0.04-0.54) K/mm3 Baso # (Auto) 0.03 (0.01-0.08) K/mm3 Neutrophils % (Manual) (40-60) % Band Neutrophils % (0-10) % Lymphocytes % (Manual) (20-40) % Atypical Lymphs % % Monocytes % (Manual) (2-10) % Eosinophils % (Manual) (0.8-7.0) % Basophils % (Manual) (0.2-1.2) Platelet Estimate RBC Morph Comment Sodium 139 (136-145) mEq/L Potassium 3.9 (3.5-5.1) mEq/L Chloride 105 (98-107) mEq/L Carbon Dioxide 25 (21-32) mEq/L Anion Gap 12.9 (5-15) BUN 13 (7-18) mg/dL Creatinine 0.9 (0.7-1.3) mg/dL Est Cr Clr Drug Dosing 121.67 mL/min Estimated GFR (MDRD) > 60 (>60) mL/min BUN/Creatinine Ratio 14.4 (14-18) Glucose 93 (74-106) mg/dL Hemoglobin A1c 5.3 ( - 5.6) % Calcium 8.3 L (8.5-10.1) mg/dL Magnesium 2.2 (1.8-2.4) mg/dl Total Bilirubin 0.4 (0.2-1.0) mg/dL AST 28 (15-37) U/L ALT 65 H (16-63) U/L Alkaline Phosphatase 95 (46-116) U/L C-Reactive Protein 1.8 H* (<1.0) mg/dL Total Protein 7.1 (6.4-8.2) g/dl Albumin 3.5 (3.4-5.0) g/dl Globulin 3.6 gm/dL Albumin/Globulin Ratio 1.0 (1-2) Influenza Type A RNA (NEGATIVE) Influenza Type B RNA (NEGATIVE) SARS-CoV-2 RNA (JONATHAN) (NEGATIVE) Result Diagrams: 08/10/20 05:12 08/10/20 05:12 Sepsis Event Note - Evaluation Sepsis Screening Result: No Definite Risk - Focused Exam Vital Signs: Vital Signs Temp Pulse Resp BP Pulse Ox 08/10/20 04:51 98.1 F 86 18 126/64 97 08/09/20 22:12 97.5 F 92 18 146/91 H 96 - Problem List & Annotations (1) Bilateral lower leg cellulitis SNOMED Code(s): 510686268 Code(s): L03.116 - CELLULITIS OF LEFT LOWER LIMB; L03.115 - CELLULITIS OF RIGHT LOWER LIMB Status: Acute Priority: High Current Visit: Yes (2) Transaminitis SNOMED Code(s): 321574577, 879077475 Code(s): R74.01 - ELEVATION OF LEVELS OF LIVER TRANSAMINASE LEVELS Status: Acute Priority: High Current Visit: Yes (3) Obesity (BMI 30.0-34.9) SNOMED Code(s): 262764836721758 Code(s): E66.9 - OBESITY, UNSPECIFIED Status: Chronic Priority: Medium Current Visit: Yes - Problem List Review Problem List Initiated/Reviewed/Updated: Yes - Plan Plan:: This is 34 yo white male with past medical hx of Obesity who comes to us for worsening bilateral lower extremity cellulitis. Assessment: Acute: Bilateral Lower Extremity Cellulitis/SSTI -Negative bilateral lower extremity doppler US DDx: Staph Aureus Infection/Staph Skin Scalded Syndrome Bilateral Inguinal Lymphadenopathy w/o complaints, likely from underlying SSTI Elevated Liver Enzymes -Known history of significant ETOH use in younger years Elevated CRP of 1.8 Class II Obese Chronic: Obesity Plan: Admit to [facility]. IV Vancomycin pharmacy to dose. Regular diet. Monitor inflammatory markers. Routine AM Labs. D. DVT/GI Prophylaxis. Dietary consult for weight management. PT wound care evaluation.
--- NOTE | 2020-08-10 08:36 | US ---
Bilateral lower extremity deep venous ultrasound: Duplex and color Doppler evaluation was obtained of the right and left common femoral, proximal greater saphenous, superficial femoral, popliteal, posterior tibial and peroneal veins. Findings: Slightly prominent lymph nodes are seen within both axillary regions. These show normal fatty center. Findings most likely represent change from inflammation. Right lymph node measures 3.2 cm and left lymph node measures 2.3 cm. Normal phasic flow, augmentation and compression is seen. Impression: 1. Slightly prominent lymph nodes within both axillary regions most likely due to inflammatory change. 2. No findings of deep venous thrombosis is seen within either the right or left lower extremity. 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
[2020-08-10] MEDS: Enoxaparin 40 MG/0.4 ML Syringe SUBCUT SCH (09:58)
[2020-08-10] MEDS: ceFAZolin 2 GM in Premix Bag 1 BAG IV SCH (21:21)
[2020-08-11] MEDS: ceFAZolin 2 GM in Premix Bag 1 BAG IV SCH (05:01)
[2020-08-11] MEDS: Enoxaparin 40 MG/0.4 ML Syringe SUBCUT SCH (09:11)
--- NOTE | 2020-08-11 09:59 | PCM.DCSUM1 ---
Discharge Summary - Hospital Course HPI Initial Comments: This is 34 yo white male with past medical hx of Obesity who comes to us for worsening bilateral lower extremity cellulitis. He states he had the infection for about a week and thought it might have been due to athlete's foot. 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 He has been using hydrocortisone and lotrimin cream but w/o any improvement of his skin infection. He was seen in [facility] yesterday and was put on Doxycycline for antibiotic treatment. Unfortunately, he states both feet were no better. He denies being diabetic. No fever or chills. He endorses redness all the way to his shins. No active pain but tenderness on palpation. He has some blisters and some scabs noted on examination. No GI or complaints. No possible exposure to covid-19 infection. His initial work up shows an unremarkable CBC. His chemistry is significant for AST of 40, ALT of 80 and CRP of 1.8. His Influenza and Covid-19 tests were both negative. His bilateral foot x-ray report read as mild soft tissue swelling and no acute osseous findings seen. Patient received 2 grams of IV Rocephin in ED prior to coming in to the floor for further treatment of bilateral lower extremity cellulitis. Diagnosis: Stroke: No - Discharge Data Discharge Date: 08/11/20 (Admit date: 08/09/20) Discharge Disposition: Home, Self-Care 01 Condition: Good - Referral to Home Health Primary Care Physician: Corin Son NP - Discharge Diagnosis/Problem(s) (1) Bilateral lower leg cellulitis SNOMED Code(s): 794258672 ICD Code: L03.116 - CELLULITIS OF LEFT LOWER LIMB; L03.115 - CELLULITIS OF RIGHT LOWER LIMB Status: Acute Priority: High Current Visit: Yes (2) Transaminitis SNOMED Code(s): 146350793, 332915171 ICD Code: R74.01 - ELEVATION OF LEVELS OF LIVER TRANSAMINASE LEVELS Status: Acute Priority: High Current Visit: Yes (3) Obesity (BMI 30.0-34.9) SNOMED Code(s): 190859508755370 ICD Code: E66.9 - OBESITY, UNSPECIFIED Status: Chronic Priority: Medium Current Visit: Yes - Patient Summary/Data Consults: Consultations 08/09/20 19:19 Consult to Case Management/Bridge Worker [CONS] Routine Consult to Congressional Representative [CONS] Routine 08/10/20 10:30 Consult to Physical Therapy [PT Evaluation and Treatment] [CONS] Routine Labs Pending at D/C: None Recommended Follow-up Testing/Procedures: Follow-up with primary care provider within 5-7 days of discharge, sooner if needed. Follow-up with outpatient wound care. Hospital Course: This is a 34-year-old male patient admitted through the emergency room after presenting with failed outpatient treatment for bilateral lower extremity cellulitis. Patient reports he initially was trying Lotrimin cream as he believed it was athlete's foot. He presented to a primary care provider and was prescribed p.o. doxycycline, but it continued to get worse. 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 He does wear work boots. On admission he was noted to have significant cellulitis worse on the right. There were multiple serosanguineous filled blisters on his right foot with skin sloughing and scabbing noted. There is never any leukocytosis and CRP remain normal, however his feet were very inflamed. Bilateral duplex ultrasound was obtained of his lower extremities to rule out DVT and none was noted. There were enlarged lymph nodes believed to be secondary to his cellulitis. Cultures were obtained at [facility] from his foot drainage and was known to grow out moderate Staphylococcus group G. Notes indicated that beta hemolytic streptococci are uniformly susceptible to penicillin, first generation cephalosporins, and vancomycin. Susceptibility testing is not indicated. Many Staph aureus are also noted. Patient was initially placed on vancomycin on admission and this was downgraded to Ancef every 8 hour. Dietary was salted due to patient's obesity. Patient was noted to have mildly elevated AST and ALT with a normal alkaline phosphatase. This remained stable and patient was known to consume alcohol significantly in his younger years. Discussion ensued with outpatient treatment and Dr. Ham believes patient should continue IV antibiotics. He was therefore switched to Rocephin which will be a 1 time a day dosing and provide good coverage, after discussion with pharmacy. Will be discharged today with outpatient wound care and orders for 7 more days of daily IV Rocephin. He was instructed to remain off his feet as much as possible. He was instructed to elevate his feet and avoid any creams or coverings. He was instructed to return the emergency room or contact his primary care provider should he notice any worsening foot pain, worsening inflammation, nausea, vomiting, or fever. Instructed to follow-up with primary care provider within 5 to 7 days of discharge, sooner if needed. Recommend repeat CBC, CMP, and magnesium at that appointment. He was instructed not to continue his p.o. antibiotic. He reports he uses chewing tobacco, less than a tin per day. He was in agreement to receive nicotine patches and these were sent to his pharmacy. He was instructed to follow-up with his primary care provider as he would likely need to decrease the dosing as he goes. He was also given a list of resources and contact information for cessation assistance. - Patient Instructions Diet: Usual Diet as Tolerated Activity: As Tolerated Driving: Do Not Drive (today) Showering/Bathing: May Shower Notify Provider of: Fever, Increased Pain, Nausea and/or Vomiting Other/Special Instructions: Follow-up with primary care provider within 5-7 days of discharge, sooner if needed. Follow-up with outpatient woundcare as directed. You will need to come in daily for the next 8 days for IV antibioitics. This will be scheduled for you priro to discharge. Do not continue your prior antibioitic pills. Stay off of your feet as much as you can. DO NOT pick at the blisters or skin. Keep the wounds open to air and elevate your legs as much as you can. Stay home from work until at least 08/21/20. We discussed your nicotine use. You indicated that you have been trying to quit and would like patches. These will be sent to your pharmacy. F ollow-up with your primary care provider as they will likely need to decrease dosing as you go. You were also provided contact numbers for local smoking cessation resources and counseling. As we discussed, should symptoms return or worsen contact your primary care provider, a walk in clinic, or return to the Emergency Department. - Discharge Plan *PRESCRIPTION DRUG MONITORING PROGRAM REVIEWED*: No *COPY OF PRESCRIPTION DRUG MONITORING REPORT IN PATIENT CHRISTY: No Prescriptions/Med Rec: Nicotine [Habitrol] 14 mg TOP DAILY #12 patch Sodium Chloride 0.9% [Normal Saline] 100 ml IV Q24H #7 bag cefTRIAXone [Rocephin] 2 gm IV Q24H #7 vial Tobacco Cessation Medication: Prescription Given Home Medications: Home Meds Nicotine [Habitrol] 14 mg TOP DAILY #12 patch 08/11/20 [Rx] Sodium Chloride 0.9% [Normal Saline] 100 ml IV Q24H #7 bag 08/11/20 [Rx] cefTRIAXone [Rocephin] 2 gm IV Q24H #7 vial 08/11/20 [Rx] Oxygen Therapy Mode: Room Air Patient Handouts: Cellulitis, Adult, Sepsis, Diagnosis, Adult, Smokeless Tobacco Information, Adult, Steps to Quit Smoking Forms: ED Department Discharge Referrals: Corin Son NP [Primary Care Provider] - 08/18/20 9:00 am (come 15 minites prior to the appointment to register.) - Discharge Summary/Plan Comment DC Time >30 min.: Yes (45 mins ) - General Info Date of Service: 08/11/20 Admission Dx/Problem (Free Text: B/L LE Cellulitis Functional Status: Reports: Pain Controlled, Tolerating Diet, Ambulating, Urinating. Denies: New Symptoms - Review of Systems General: Reports: No Symptoms. Denies: Fever, Weakness, Fatigue, Malaise, Chills HEENT: Reports: No Symptoms. Denies: Headaches, Sore Throat Pulmonary: Reports: No Symptoms. Denies: Shortness of Breath, Cough, Sputum, Wheezing Cardiovascular: Reports: No Symptoms. Denies: Chest Pain, Palpitations, Dyspnea on Exertion, Edema Gastrointestinal: Reports: No Symptoms. Denies: Abdominal Pain, Constipation, Diarrhea, Nausea, Vomiting Genitourinary: Reports: No Symptoms. Denies: Pain Musculoskeletal: Reports: No Symptoms. Denies: Neck Pain, Shoulder Pain, Leg Pain, Foot Pain Skin: Reports: No Symptoms. Denies: Cyanosis Neurological: Reports: No Symptoms. Denies: Confusion, Dizziness, Headache, Numbness, Pre-Existing Deficit, Tingling, Difficulty Walking, Weakness, Gait Disturbance Psychiatric: Reports: No Symptoms - Patient Data Vitals - Most Recent: Last Vital Signs Temp 98.1 F 08/11/20 08:37 Pulse 40 L 08/11/20 08:37 Resp 14 08/11/20 08:37 BP 149/98 H 08/11/20 08:37 Pulse Ox 95 08/11/20 08:37 Weight - Most Recent: 242 lb 8 oz I&O - Last 24 hours: Intake & Output 08/10/20 08/11/20 08/11/20 22:59 06:59 14:59 Intake Total 1700 650 Output Total 1000 900 Balance 700 -250 Lab Results - Last 24 hrs: Laboratory Results - last 24 hr 08/11/20 08/11/20 Range/Units 05:19 05:19 WBC 5.69 (4.23-9.07) K/mm3 RBC 5.11 (4.63-6.08) M/mm3 Hgb 15.0 (13.7-17.5) gm/dl Hct 45.2 (40.1-51.0) % MCV 88.5 (79.0-92.2) fl MCH 29.4 (25.7-32.2) pg MCHC 33.2 (32.2-35.5) g/dl RDW Std Deviation 39.7 (35.1-43.9) fL Plt Count 212 (163-337) K/mm3 MPV 9.3 L (9.4-12.3) fl Neut % (Auto) 47.7 (34.0-67.9) % Lymph % (Auto) 37.4 (21.8-53.1) % [place] % (Auto) 8.8 (5.3-12.2) % Eos % (Auto) 5.6 (0.8-7.0) Baso % (Auto) 0.5 (0.1-1.2) % Neut # (Auto) 2.71 (1.78-5.38) K/mm3 Lymph # (Auto) 2.13 (1.32-3.57) K/mm3 [place] # (Auto) 0.50 (0.30-0.82) K/mm3 Eos # (Auto) 0.32 (0.04-0.54) K/mm3 Baso # (Auto) 0.03 (0.01-0.08) K/mm3 Sodium 139 (136-145) mEq/L Potassium 4.3 (3.5-5.1) mEq/L Chloride 104 (98-107) mEq/L Carbon Dioxide 25 (21-32) mEq/L Anion Gap 14.3 (5-15) BUN 12 (7-18) mg/dL Creatinine 1.0 (0.7-1.3) mg/dL Est Cr Clr Drug Dosing 109.50 mL/min Estimated GFR (MDRD) > 60 (>60) mL/min BUN/Creatinine Ratio 12.0 L (14-18) Glucose 96 (74-106) mg/dL Calcium 8.8 (8.5-10.1) mg/dL Magnesium 2.2 (1.8-2.4) mg/dl Total Bilirubin 0.4 (0.2-1.0) mg/dL AST 39 H (15-37) U/L ALT 78 H (16-63) U/L Alkaline Phosphatase 90 (46-116) U/L C-Reactive Protein 0.9 (<1.0) mg/dL Total Protein 7.4 (6.4-8.2) g/dl Albumin 3.7 (3.4-5.0) g/dl Globulin 3.7 gm/dL Albumin/Globulin Ratio 1.0 (1-2) Med Orders - Current: Current Medications Albuterol/Ipratropium (Duoneb 3.0-0.5 Mg/3 Ml) 3 ml NEB Q4H PRN PRN Reason: Shortness Of Breath/wheezing Bisacodyl (Dulcolax) 5 mg PO DAILY PRN PRN Reason: Constipation Docusate Sodium (Colace) 100 mg PO BID PRN PRN Reason: Constipation Enoxaparin Sodium (Lovenox) 40 mg SUBCUT DAILY [facility] Last Admin: 08/11/20 09:11 Dose: 40 mg Documented by: Hydromorphone HCl (Dilaudid) 0.5 mg IVPUSH Q2H PRN PRN Reason: Pain (severe 7-10) Promethazine HCl 12.5 mg/ (Sodium Chloride) 50.5 mls @ 100 mls/hr IV Q6H PRN PRN Reason: Nausea/Vomiting Ceftriaxone Sodium 2 gm/ (Sodium Chloride) 100 mls @ 200 mls/hr IV Q24H [facility] Ibuprofen (Motrin) 600 mg PO Q6H PRN PRN Reason: Pain (moderate 4-6) Ondansetron HCl (Zofran) 4 mg IV Q6H PRN PRN Reason: Nausea/Vomiting Oxycodone HCl (Oxycodone) 5 mg PO Q4H PRN PRN Reason: Pain (moderate 4-6) Senna/Docusate Sodium (Senna Plus) 1 tab PO BID PRN PRN Reason: Constipation Sodium Chloride (Saline Flush) 10 ml FLUSH ASDIRECTED PRN PRN Reason: Keep Vein Open Last Admin: 08/09/20 14:43 Dose: 10 ml Documented by: Zolpidem Tartrate (Ambien) 5 mg PO BEDTIME PRN PRN Reason: Sleep Discontinued Medications Ceftriaxone Sodium 2 gm/ (Sodium Chloride) 100 mls @ 200 mls/hr IV ONETIME ONE Stop: 08/09/20 16:39 Last Admin: 08/09/20 16:28 Dose: 200 mls/hr Documented by: Vancomycin HCl 1 gm/ Sodium (Chloride) 250 mls @ 250 mls/hr IV Q12H [facility] Last Admin: 08/09/20 22:31 Dose: Not Given Documented by: Vancomycin HCl 1 gm/Vancomycin HCl 500 mg/ Sodium Chloride 500 mls @ 333.333 mls/hr IV Q8H [facility] Last Admin: 08/10/20 11:52 Dose: 333.333 mls/hr Documented by: Cefazolin Sodium/Dextrose 2 gm (/ Premix) 50 mls @ 100 mls/hr IV Q8H [facility] Last Admin: 08/11/20 05:01 Dose: 100 mls/hr Documented by: Morphine Sulfate (Morphine) 1 mg IVPUSH Q2H PRN PRN Reason: Pain (severe 7-10) Stop: 08/10/20 19:22 Vancomycin HCl (Pharmacy To Dose - Vancomycin) 1 dose .XX ASDIRECTED PRN PRN Reason: RX TO DOSE VANCO - Exam Quality Assessment: Reports: DVT Prophylaxis. Denies: Supplemental Oxygen, Urine Catheter General: Reports: Alert, Oriented, Cooperative, No Acute Distress HEENT: Reports: Pupils Equal, Pupils Reactive, Mucous Membr. Moist/Mariano Colon Neck: Reports: Supple, Trachea Midline Lungs: Reports: Clear to Auscultation, Normal Respiratory Effort Cardiovascular: Reports: Regular Rate, Regular Rhythm GI/Abdominal Exam: Normal Bowel Sounds, Soft, Non-Tender, No Distention (Male) Exam: Deferred Rectal (Males) Exam: Deferred Back Exam: Reports: Normal Inspection, Full Range of Motion Extremities: Normal Range of Motion, Non-Tender, No Pedal Edema, Normal Capillary Refill, Other (Bilateral lower extremity erythema - improving. Blistering and skin sloughing on right leg - improving ). No: Leg Pain, Limited Range of Motion Wound/Incisions: Reports: Healing Well, No Drainage, Erythema Improving Neurological: Reports: No New Focal Deficit Psy/Mental Status: Reports: Alert, Normal Affect, Normal Mood
[2020-08-11] MEDS ORDERED: cefTRIAXone 2 GM in Sodium Chloride 0.9% 100 ML IV SCH (11:00)
== END 2020-08-11 11:50 | disposition home or self-care (01) ==
LOC: JD.ED 13:29 → JD.MS 20:35
PROVIDERS: ADMIT Internal Medicine; ATTEND Internal Medicine
DX: L03.115 Cellulitis of right lower limb (principal); L03.116 Cellulitis of left lower limb; E66.9 Obesity, unspecified; Z68.34 Body mass index [BMI] 34.0-34.9, adult; R74.01 Elevation of levels of liver transaminase levels; R59.0 Localized enlarged lymph nodes; R79.82 Elevated C-reactive protein (CRP); F17.210 Nicotine dependence, cigarettes, uncomplicated; Z20.822 Contact with and (suspected) exposure to COVID-19; Z79.899 Other long term (current) drug therapy; Z98.890 Other specified postprocedural states
CPT/HCPCS: 0240U; 36415; 73630; 80053; 83036; 83735; 85007; 85025; 85027; 86140; 93970; 96365; 96366; 96367; 96372; 96376; 97162; 99285; G0378; J0690; J0696; J1650; J3370; J7040; 99217; 99218; 99225; 99284